=== PATIENT | female | born 1950 | race Caucasian/White ===

== ENCOUNTER 2018-12-18 20:14 | Emergency (ER) | payer MEDICARE ==
[~2018-12-18] VITALS: Ht 162.6 cm; Wt 74.8 kg
[2018-12-18] MEDS ORDERED: ROSU5TAB PO (20:25)
--- NOTE | 2018-12-18 21:13 | NUR ---
Patient discharged to home in stable conditon. Written and verbal after care instructions given. Patient verbalizes understanding of instructions. Pt ambulated out of ER in stable gait. No acute distress noted. Vital signs stable. Respirations even + unlabored.
[2018-12-18 21:14] VITALS: BP 121/74
== END 2018-12-18 21:21 | disposition home or self-care (01) ==
LOC: ER 20:17
DX: J20.9 Acute bronchitis, unspecified (principal); E78.5 Hyperlipidemia, unspecified; Z90.710 Acquired absence of both cervix and uterus; Z79.899 Other long term (current) drug therapy
CPT/HCPCS: 93005; A4663